=== PATIENT | female | born 1945 | race Caucasian/White ===

== ENCOUNTER → 2017-03-06 | Outpatient (CLI) | payer OTHER | END | disposition home or self-care (01) | LOC: RAH 07:59 | PROVIDERS: ATTEND Internal Medicine | DX: Z12.31 Encounter for screening mammogram for malignant neoplasm of breast (principal) | CPT/HCPCS: 77067 ==

== ENCOUNTER 2017-05-13 09:52 | Emergency (ER) | payer OTHER | END 2017-05-13 10:50 | disposition home or self-care (01) | LOC: EDH 09:52 | DX: S61.411A Laceration without foreign body of right hand, initial encounter (principal); W22.03XA Walked into furniture, initial encounter; Y93.89 Activity, other specified; Y92.69 Other specified industrial and construction area as the place of occurrence of the external cause; Y99.8 Other external cause status | CPT/HCPCS: 12044 ==

== ENCOUNTER 2017-05-24 13:28 | Emergency (ER) | payer OTHER | END 2017-05-24 14:14 | disposition home or self-care (01) | LOC: EDH 13:28 | DX: S61.411D Laceration without foreign body of right hand, subsequent encounter (principal); R03.0 Elevated blood-pressure reading, without diagnosis of hypertension; Z88.1 Allergy status to other antibiotic agents; Z79.2 Long term (current) use of antibiotics; X58.XXXD Exposure to other specified factors, subsequent encounter | CPT/HCPCS: 99281 ==

== ENCOUNTER → 2018-03-17 | Outpatient (CLI) | payer OTHER | END | disposition home or self-care (01) | LOC: RAH 08:18 | PROVIDERS: ATTEND Internal Medicine | DX: Z12.31 Encounter for screening mammogram for malignant neoplasm of breast (principal) | CPT/HCPCS: 77067 ==

== ENCOUNTER → 2018-04-15 | Outpatient (CLI) | payer OTHER ==
[2018-04-15 09:19] LABS: BASOPHILS % (AUTO) 0.9 % (0.0-5.0); EOSINOPHILS % (AUTO) 5.9 % (0.0-8.0); HEMATOCRIT 39.5 % (36-48); LYMPHOCYTES % (AUTO) 30.1 % (21.0-51.0); MEAN CORPUSCULAR HEMOGLOBIN 30.5 pg (27.0-33.0); MEAN CORPUSCULAR VOLUME 92.3 fL (79-99); MONOCYTES % (AUTO) 7.9 % (3.0-13.0); NEUTROPHILS % (AUTO) 55.2 % (40.0-77.0); PLATELET COUNT (AUTO) 200 K/uL (130-400); RED BLOOD CELL COUNT(AUTO) 4.28 MIL/uL (4.00-5.50); RED CELL DISTRIBUTION WIDTH 13.9 % (11.0-15.5); WHITE BLOOD COUNT (AUTO) 4.5 K/uL (4.8-10.8)
[2018-04-15 09:31] LABS: ALBUMIN 3.7 g/dL (3.5-5.0); BILIRUBIN,TOTAL 0.4 mg/dL (0.2-1.0); CREATININE 0.7 mg/dL (0.5-1.5); POTASSIUM 4.3 mmol/L (3.5-5.1)
== END | disposition home or self-care (01) ==
LOC: LAB 08:59
PROVIDERS: ATTEND Internal Medicine
DX: E78.2 Mixed hyperlipidemia (principal); E55.9 Vitamin D deficiency, unspecified
CPT/HCPCS: 36415; 80053; 80061; 82306; 85025

== ENCOUNTER 2018-08-10 05:34 | Day surgery (SDC) | payer OTHER ==
[~2018-08-10] VITALS: Ht 170.2 cm; Wt 99.8 kg
[~2018-08-10 05:34] MED LIST: ESCI10TA PO; MULT-1203 PO; VITAMIN D2 PO
[2018-08-10 05:42] VITALS: BP 134/68
[2018-08-10] MEDS ORDERED: SODIUM CHLORIDE 0.9% 1000ML 1,000 ML IV ONE (05:55)
[2018-08-10] MEDS ORDERED: PROPOFOL 10 MG/ML 20ML VIAL IV ONE (06:30)
[2018-08-10] MEDS ORDERED: GLYCOPYRROLATE 0.2 MG/ML 5 ML VIAL ONE (06:31)
[2018-08-10] MEDS ORDERED: FENTANYL CITRATE PF 50 MCG/1 ML 2ML VIAL ONE (06:43)
[2018-08-10 07:04] VITALS: BP 92/41
[2018-08-10 07:09] VITALS: BP 92/45
[2018-08-10 07:14] VITALS: BP 99/56
[2018-08-10 07:19] VITALS: BP 125/77
[2018-08-10 07:26] VITALS: BP 129/67
== END 2018-08-10 07:47 | disposition home or self-care (01) ==
LOC: DAH 05:34
PROVIDERS: ATTEND Internal Medicine
DX: Z12.11 Encounter for screening for malignant neoplasm of colon (principal); D12.4 Benign neoplasm of descending colon; K63.5 Polyp of colon; E78.5 Hyperlipidemia, unspecified; I34.1 Nonrheumatic mitral (valve) prolapse; M81.0 Age-related osteoporosis without current pathological fracture; E66.9 Obesity, unspecified; Z68.34 Body mass index [BMI] 34.0-34.9, adult; Z86.010 Personal history of colon polyps; Z79.899 Other long term (current) drug therapy; Z98.890 Other specified postprocedural states; Z88.8 Allergy status to other drugs, medicaments and biological substances; Z90.710 Acquired absence of both cervix and uterus; Z82.49 Family history of ischemic heart disease and other diseases of the circulatory system; Z82.3 Family history of stroke
CPT/HCPCS: 45380; 93005; A4606; J2704; J3010; J3490; J7030

== ENCOUNTER → 2018-11-08 | Outpatient (CLI) | payer OTHER ==
[2018-11-08 08:53] LABS: BASOPHILS % (AUTO) 0.9 % (0.0-5.0); EOSINOPHILS % (AUTO) 3.5 % (0.0-8.0); HEMATOCRIT 38.2 % (36-48); LYMPHOCYTES % (AUTO) 32.6 % (21.0-51.0); MEAN CORPUSCULAR HEMOGLOBIN 31.1 pg (27.0-33.0); MEAN CORPUSCULAR HGB CONC 33.4 g/dL (32.0-36.0); MEAN CORPUSCULAR VOLUME 93.1 fL (79-99); MONOCYTES % (AUTO) 6.9 % (3.0-13.0); NEUTROPHILS % (AUTO) 56.1 % (40.0-77.0); PLATELET COUNT (AUTO) 193 K/uL (130-400); RED CELL DISTRIBUTION WIDTH 12.9 % (11.0-15.5); WHITE BLOOD COUNT (AUTO) 4.3 K/uL (4.8-10.8)
[2018-11-08 09:09] LABS: ALBUMIN 3.7 g/dL (3.5-5.0); BILIRUBIN,TOTAL 0.3 mg/dL (0.2-1.0); CREATININE 0.7 mg/dL (0.5-1.5); POTASSIUM 4.3 mmol/L (3.5-5.1)
== END | disposition home or self-care (01) ==
LOC: LAB 08:24
PROVIDERS: ATTEND Internal Medicine
DX: M19.90 Unspecified osteoarthritis, unspecified site (principal); E55.9 Vitamin D deficiency, unspecified; E78.5 Hyperlipidemia, unspecified
CPT/HCPCS: 36415; 80053; 80061; 82306; 85025

== ENCOUNTER → 2019-03-18 | Outpatient (CLI) | payer OTHER | END | disposition home or self-care (01) | LOC: RAH 08:05 | PROVIDERS: ATTEND Internal Medicine | DX: Z12.31 Encounter for screening mammogram for malignant neoplasm of breast (principal) | CPT/HCPCS: 77067 ==

== ENCOUNTER → 2019-10-27 | Outpatient (CLI) | payer OTHER ==
[2019-10-27 09:29] LABS: BASOPHILS % (AUTO) 0.9 % (0.0-5.0); EOSINOPHILS % (AUTO) 3.4 % (0.0-8.0); HEMATOCRIT 36.9 % (36-48); LYMPHOCYTES % (AUTO) 34.6 % (21.0-51.0); MEAN CORPUSCULAR HEMOGLOBIN 28.3 pg (27.0-33.0); MEAN CORPUSCULAR VOLUME 88.5 fL (79-99); MONOCYTES % (AUTO) 9.2 % (3.0-13.0); NEUTROPHILS % (AUTO) 51.7 % (40.0-77.0); PLATELET COUNT (AUTO) 234 K/uL (130-400); RED BLOOD CELL COUNT(AUTO) 4.17 MIL/uL (4.00-5.50); RED CELL DISTRIBUTION WIDTH 15.5 % (11.0-15.5); WHITE BLOOD COUNT (AUTO) 4.4 K/uL (4.8-10.8)
[2019-10-27 09:50] LABS: ALBUMIN 3.8 g/dL (3.5-5.0); BILIRUBIN,TOTAL 0.3 mg/dL (0.2-1.0); CREATININE 0.8 mg/dL (0.5-1.5); POTASSIUM 4.2 mmol/L (3.5-5.1); TOTAL PROTEIN, SERUM 7.2 g/dL (6.0-8.3)
== END | disposition home or self-care (01) ==
LOC: LAB 08:28
PROVIDERS: ATTEND Internal Medicine
DX: Z00.00 Encounter for general adult medical examination without abnormal findings (principal); M54.5 Low back pain; E78.2 Mixed hyperlipidemia; E55.9 Vitamin D deficiency, unspecified
CPT/HCPCS: 36415; 80053; 80061; 82306; 85025

== ENCOUNTER → 2020-03-23 | Outpatient (CLI) | payer OTHER | END | disposition home or self-care (01) | LOC: RAH 13:37 | PROVIDERS: ATTEND Internal Medicine | DX: Z12.31 Encounter for screening mammogram for malignant neoplasm of breast (principal) | CPT/HCPCS: 77067 ==

== ENCOUNTER → 2020-07-02 | Outpatient (CLI) | payer OTHER | END | disposition home or self-care (01) | LOC: OIH 10:07 | PROVIDERS: ATTEND Internal Medicine | DX: Z13.6 Encounter for screening for cardiovascular disorders (principal) | CPT/HCPCS: 75571 ==

== ENCOUNTER → 2021-09-09 | Outpatient (CLI) | payer OTHER | END | disposition home or self-care (01) | LOC: RAH 14:53 | PROVIDERS: ATTEND Internal Medicine | DX: Z12.31 Encounter for screening mammogram for malignant neoplasm of breast (principal) | CPT/HCPCS: 77067 ==

== ENCOUNTER → 2022-09-01 | Outpatient (CLI) | payer MEDICARE | END | disposition home or self-care (01) | LOC: RAH 11:09 | PROVIDERS: ATTEND Internal Medicine | DX: Z12.31 Encounter for screening mammogram for malignant neoplasm of breast (principal) | CPT/HCPCS: 77067 ==

== ENCOUNTER → 2022-10-30 | Outpatient (CLI) | payer OTHER | END | disposition home or self-care (01) | LOC: OIH 14:04 | PROVIDERS: ATTEND Internal Medicine | DX: Z13.6 Encounter for screening for cardiovascular disorders (principal) | CPT/HCPCS: 75571 ==

== ENCOUNTER → 2023-03-09 | Outpatient (CLI) | payer MEDICARE | END | disposition home or self-care (01) | LOC: RAH 11:11 | PROVIDERS: ATTEND Internal Medicine | DX: M16.11 Unilateral primary osteoarthritis, right hip (principal); M25.551 Pain in right hip | CPT/HCPCS: 73502 ==

== ENCOUNTER → 2023-09-07 | Outpatient (CLI) | payer MEDICARE | END | disposition home or self-care (01) | LOC: RAH 09:21 | PROVIDERS: ATTEND Internal Medicine | DX: Z12.31 Encounter for screening mammogram for malignant neoplasm of breast (principal) | CPT/HCPCS: 77067 ==

== ENCOUNTER → 2025-01-05 | Outpatient (CLI) | payer MEDICARE ==
[~2025-01-05] MED LIST changes: +AMLO-257 PO; +CHOL500045 PO; +IRBE300T43 PO; -MULT-1203 PO; +MULT-1367 PO; +PRESERVISION AREDS PO; -VITAMIN D2 PO
--- NOTE | 2025-01-05 13:04 | HMCIMG ---
STUDY: X-RAY OF THE RIGHT HIP, 3 VIEWS HISTORY: Pain in the right hip. TECHNIQUE: Anteroposterior view of the pelvis and anteroposterior and frog-leg views of the right hip are submitted for interpretation. COMPARISON: None provided. FINDINGS: Pelvis and pelvic bones: Bilateral pubic bones, iliac blades, and ischia appear normal. Acetabula: Bilateral acetabuli and their anterior and posterior pillars appear normal. Femoral heads and necks: Bilateral femoral heads and necks appear normal with no fracture seen. No hip joint effusion is identified. Right hip joint: There is marked joint space narrowing with small osteophytes, subchondral sclerosis, and cyst formation consistent with advanced degenerative change. No acute fracture or dislocation is seen. Left hip joint: Joint space is preserved with no significant degenerative change. No fracture is seen. Sacrum and coccyx: The coccyx and sacrum appear normal. Posterior elements appear normal. No fracture is seen. Surrounding soft tissues appear normal. Sacroiliac joints: Bilateral sacroiliac joints appear normal. Soft tissues: Muscles and soft tissues around the hip joints appear normal. 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 * No acute fracture or dislocation. * Left hip, sacrum, coccyx, and sacroiliac joints appear normal. /[place]
--- NOTE | 2025-01-05 13:13 | HMCIMG ---
STUDY: X-RAY OF THE LUMBAR SPINE, 3 VIEWS HISTORY: Low back pain. TECHNIQUE: Three views of the lumbar spine are submitted for interpretation. COMPARISON: None provided. FINDINGS: Vertebral bodies: Moderate chronic wedge compression deformity of L1 is noted. The remaining lumbar vertebral bodies are normal in height. Bones appear osteopenic. There is no evidence of lytic or sclerotic bone lesions. Intervertebral disc spaces: There is a reduction in disc height at T12???L1, L1???L2, and L2???L3, compatible with degenerative disc disease. Alignment: Overall lumbar spinal alignment is preserved. There is no evidence of listhesis. Degenerative changes: An anterior osteophyte is seen at L2???L3. Soft tissues: The prevertebral and paravertebral soft tissues are normal. IMPRESSION: * Moderate chronic wedge compression deformity of L1. * Multilevel degenerative disc disease at T12???L1, L1???L2, and L2???L3. 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 * Consider MRI of the lumbar spine for further evaluation if clinically indicated. /[place]
== END | disposition home or self-care (01) ==
LOC: RAH 10:11
PROVIDERS: ATTEND Internal Medicine
DX: S32.010A Wedge compression fracture of first lumbar vertebra, initial encounter for closed fracture (principal); M25.551 Pain in right hip; M54.50 Low back pain, unspecified; M51.35 Other intervertebral disc degeneration, thoracolumbar region; M25.78 Osteophyte, vertebrae; M16.11 Unilateral primary osteoarthritis, right hip; M25.751 Osteophyte, right hip; Z91.81 History of falling; X58.XXXA Exposure to other specified factors, initial encounter; Y93.89 Activity, other specified; Y92.89 Other specified places as the place of occurrence of the external cause; Y99.8 Other external cause status
CPT/HCPCS: 72100; 73502

== ENCOUNTER → 2025-01-30 | Outpatient (CLI) | payer MEDICARE ==
--- NOTE | 2025-02-01 06:02 | HMCIMG ---
EXAM: MR Lumbar Spine Without Intravenous Contrast. CLINICAL HISTORY: M51.369 Other intervertebral disc degeneration, lumbar region, without mention. TECHNIQUE: Magnetic resonance images of the lumbar spine in multiple planes. CONTRAST: None. COMPARISON: Prior lumbar spine radiograph dated January 03, 2025. FINDINGS: For this examination, spinal levels were labeled assuming five [id number], lumbar-type vertebrae, with the inferior labeled L5. Normal lordotic curvature. Chronic anterior wedge compression fracture of the L1 vertebra. Mild acute anterior wedge compression fracture of the T11 vertebra . The rest of the visualized lower thoracic and lumbar vertebrae are normal in height. Mild disc desiccation at L1-L2, L2-L3, L3-L4, and L4-L5 levels with multilevel degenerative facet arthropathy. Mild disc bulges at L2-L3, L3-L4, and L4-L5 levels. Normal marrow signal of the vertebrae. Conus medullaris terminates at the T12-L1 level. No abnormal epidural masses. The surrounding soft tissues are unremarkable. Individual spinal levels are described as follows: T12-L1: No disc bulge or herniation. No neural foraminal, lateral recess, or spinal canal stenosis. L1-L2: Chronic anterior wedge compression fracture of the L1 vertebra. Mild disc desiccation with a 3 mm disc bulge and a posterior central annular tear. Right facet arthropathy and facet joint effusion. No significant lateral recess or spinal stenosis. L2-L3: Disc desiccation with degenerative reduction in disc space. Broad-based circumferential 4 mm disc bulge. Severe bilateral facet arthropathy and ligamentum flavum hypertrophy. Moderate narrowing of the right neural foramina and left lateral recess. Abutment of the right exiting L2 and left traversing L3 nerve root. Mild spinal canal stenosis. L3-L4: Disc desiccation with a broad-based circumferential 3 mm disc bulge with moderate bilateral facet atrophy. Mild narrowing of the bilateral neural foramina and extraforaminal abutment of the left exiting L3 nerve root. Mild left lateral recess. No spinal canal stenosis. L4-L5: Mild disc desiccation. Broad-based circumferential 4 mm disc bulge with moderate bilateral facet arthropathy, left more than right, and left facet joint effusion. Mild narrowing of the right neural foramina. No significant lateral recess or spinal canal stenosis. L5-S1: No disc bulge or herniation. Small left paracentral annular tear. No neural foraminal, lateral recess, or spinal canal stenosis. IMPRESSION: Chronic anterior wedge compression fracture of the L1 vertebra. Acute anterior wedge compression fracture of the T11 thoracic vertebra. The rest of the visualized lower thoracic and lumbar vertebrae are normal in height. Mild disc desiccation at L1-L2, L2-L3, L3-L4, and L4-L5 levels with multilevel degenerative facet arthropathy. Mild disc bulges at L2-L3, L3-L4, and L4-L5 levels. Moderate degenerative changes in the lumbar spine as described above. [facility]
== END | disposition home or self-care (01) ==
LOC: RAH 13:50
PROVIDERS: ATTEND Internal Medicine
DX: S32.010A Wedge compression fracture of first lumbar vertebra, initial encounter for closed fracture (principal); S22.080A Wedge compression fracture of T11-T12 vertebra, initial encounter for closed fracture; M51.369 Other intervertebral disc degeneration, lumbar region without mention of lumbar back pain or lower extremity pain; M77.9 Enthesopathy, unspecified; M47.816 Spondylosis without myelopathy or radiculopathy, lumbar region; M51.360 Other intervertebral disc degeneration, lumbar region with discogenic back pain only; X58.XXXA Exposure to other specified factors, initial encounter; Y93.89 Activity, other specified; Y92.89 Other specified places as the place of occurrence of the external cause; Y99.8 Other external cause status
CPT/HCPCS: 72148